=== PATIENT | male | born 1950 | race Caucasian/White ===

== ENCOUNTER 2019-06-05 19:04 | Emergency (ER) | payer MEDICARE ==
--- NOTE | 2019-06-05 19:56 | ER Document Report ---
ED Medical Screen (RME) - General Stated Complaint: LEG PAIN,DIFFICULTY BREATHING Time Seen by Provider: 06/05/19 19:45 Notes: Patient is a 69-year-old male with a history of Parkinson's disease who presents to the emergency department with bilateral lower extremity tremors and shortness of breath. Patient states that he has had his shortness of breath every once in a while, but was worse today and he ended up taking 3 puffs of his albuterol inhaler today. Family is at bedside and states that the patient has had increased confusion. Exam: Clear breath sounds throughout, tremors noted in bilateral lower and right upper extremities. I have greeted and performed a rapid initial assessment of this patient. A comprehensive ED assessment and evaluation of the patient, analysis of test results and completion of medical decision making process will be conducted by an additional ED providers. - Related Data Allergies/Adverse Reactions: No Known Allergies Allergy (Unverified 06/05/19 19:45) Physical Exam - Vital signs Vitals: Temp Pulse Resp BP Pulse Ox 97.7 F 84 18 179/99 H 100 06/05/19 19:22 06/05/19 19:22 06/05/19 19:22 06/05/19 19:22 06/05/19 19:22 Course - Vital Signs Vital signs: Temp Pulse Resp BP Pulse Ox 97.7 F 84 18 179/99 H 100 06/05/19 19:22 06/05/19 19:22 06/05/19 19:22 06/05/19 19:22 06/05/19 19:22
[2019-06-05 20:26] LABS: ABSOLUTE EOSINOPHILS # (AUTO) 0.1 10^3/uL (0.0-0.6); ABSOLUTE LYMPHOCYTES (AUTO) 0.9 10^3/uL (0.5-4.7); ABSOLUTE MONOCYTES (AUTO) 0.7 10^3/uL (0.1-1.4); ABSOLUTE NEUT (AUTO) 4.5 10^3/uL (1.7-8.2); BASOPHILS % (AUTO) 0.4 % (0-2); EOSINOPHILS % (AUTO) 1.3 % (0-6); HEMATOCRIT 45.6 % (37.9-51.0); HEMOGLOBIN 15.4 g/dL (13.5-17.0); LYMPHOCYTES % (AUTO) 14.1 % (13-45); MEAN CORPUSCULAR HEMOGLOBIN 30.2 pg (27.0-33.4); MEAN CORPUSCULAR HGB CONC 33.8 g/dL (32.0-36.0); MEAN CORPUSCULAR VOLUME 90 fl (80-97); MONOCYTES % (AUTO) 10.7 % (3-13); PLATELET COUNT 163 10^3/uL (150-450); RED CELL DISTRIBUTION WIDTH 13.5 % (11.5-14.0); SEGMENTED NEUTROPHILS % (AUTO) 73.5 % (42-78); TOTAL CELLS COUNTED % (AUTO) 100 %; WHITE BLOOD COUNT 6.2 10^3/uL (4.0-10.5)
[2019-06-05 20:50] LABS: ALBUMIN 3.8 g/dL (3.5-5.0); ALKALINE PHOSPHATASE 90 U/L (38-126); ANION GAP 6 (5-19); ASPARTATE AMINO TRANSFERASE 22 U/L (17-59); BILIRUBIN,TOTAL 0.6 mg/dL (0.2-1.3); BLOOD UREA NITROGEN 19 mg/dL (7-20); CALCIUM 9.4 mg/dL (8.4-10.2); CARBON DIOXIDE 27 mmol/L (22-30); CHLORIDE 105 mmol/L (98-107); CREATINE KINASE 103 U/L (55-170); GLUCOSE 91 mg/dL (75-110); POTASSIUM 3.7 mmol/L (3.6-5.0); TOTAL PROTEIN 6.4 g/dL (6.3-8.2)
--- NOTE | 2019-06-05 21:15 | RADIOLOGY REPORT (SQ) ---
XR CHEST 1 VIEW EXAM DATE: 06/05/2019 7:53 PM TESTING CONSULTANT HISTORY: Shortness of breath. COMPARISON: None. FINDINGS: The cardiac silhouette is within normal limits. There is no pulmonary vascular congestion. No focal consolidation is identified. No pleural effusions or pneumothorax. IMPRESSION: No evidence of acute cardiopulmonary disease.
--- NOTE | 2019-06-05 21:16 | RADIOLOGY REPORT (SQ) ---
CT HEAD WITHOUT IV CONTRAST EXAM DATE: 06/05/2019 7:54 PM PRINCIPAL ANDROID DEVELOPER HISTORY: Tremors; confusion. COMPARISON: None. TECHNIQUE: CT scan of the brain without IV contrast. This exam was performed according to our departmental dose-optimization program, which includes automated exposure control, adjustment of the mA and/or kV according to patient size and/or use of iterative reconstruction technique. FINDINGS: The ventricles, cisterns, and sulci are age-appropriate. No evidence of acute infarction, intracranial hemorrhage, extra-axial fluid collection, or midline shift. No air-fluid levels are seen in the paranasal sinuses to suggest acute sinusitis. No depressed skull fracture. IMPRESSION: No acute intracranial findings.
--- NOTE | 2019-06-05 22:00 | EKG REPORT ---
SEVERITY:- ABNORMAL ECG - SINUS RHYTHM BORDERLINE LEFT AXIS DEVIATION NONSPECIFIC T ABNORMALITIES, INFERIOR LEADS : Confirmed by: Lay Adams MD 05-Jun-2019 22:00:03
--- NOTE | 2019-06-06 00:03 | ER Document Report ---
Entered by BETHANY ROWLAND SCRIBE 06/05/19 3621 Acting as scribe for:KARINA HENDRICKS MD ED General - General Chief Complaint: Tremor Stated Complaint: LEG PAIN,DIFFICULTY BREATHING Time Seen by Provider: 06/05/19 19:45 Primary Care Provider: KODY HERNANDEZ PA-C [Primary Care Provider] - Follow up as needed Information source: Patient, Relative Notes: 69-year-old male presents to the emergency department with a chief complaint of tremors that began about 4 years back and has worsened the past 3 weeks. Patient complains of being dizzy, "can't keep my hands still", "memory is getting bad", diaphoresis and diarrhea. Patient denies chest pain and headache. Patient states that reason he came in today was because he was "also having trouble breathing". Patient stated that they are receiving care from PCP for chronic issues and are waiting for results from scans that were done last week. TRAVEL OUTSIDE OF THE [place] IN LAST 30 DAYS: No - Related Data Allergies/Adverse Reactions: No Known Allergies Allergy (Unverified 06/05/19 19:45) Past Medical History - General Information source: Patient, Relative - Social History Smoking Status: Former Smoker Cigarette use (# per day): No Chew tobacco use (# tins/day): No Lives with: Spouse/Significant other Family History: Reviewed & Not Pertinent Patient has suicidal ideation: No Patient has homicidal ideation: No Pulmonary Medical History: Reports: Hx Asthma, Other - Emphysema Renal/ Medical History: Reports: Other - CDK Musculoskeletal Medical History: Reports Hx Arthritis Psychiatric Medical History: Reports: Hx Anxiety, Hx Depression Review of Systems - Review of Systems Constitutional: See HPI, Diaphoresis Cardiovascular: See HPI. denies: Chest pain Gastrointestinal: See HPI, Diarrhea Neurological/Psychological: See HPI. denies: Headaches Physical Exam - Vital signs Vitals: Temp Pulse Resp BP Pulse Ox 97.7 F 84 18 179/99 H 100 06/05/19 19:22 06/05/19 19:22 06/05/19 19:22 06/05/19 19:22 06/05/19 19:22 - Notes Notes: Physical Exam: General: Alert, appears anxious. HEENT: Normocephalic. Atraumatic. PERRL. Extraocular movements intact. Oropharynx clear. Neck: Supple. Non-tender. Respiratory: No respiratory distress. Clear and equal breath sounds bilaterally. Cardiovascular: Regular rate and rhythm. Abdominal: Normal Inspection. Non-tender. No distension. Normal Bowel Sounds. Back: No gross abnormalities. Extremities: Moves all four extremities. Upper extremities: Normal ROM. Moderate tremors; right greater than left. Lower extremities: No edema. Normal ROM. Mild tremors bilaterally. Neurological: Normal cognition. AAOx4. Normal speech. Psychological: Normal affect. Normal Mood. Skin: Warm. Dry. Normal color. Course - Re-evaluation Re-evalutation: 06/05/19 23:57 Patient states he is ready to go home at this time. Patient seems to have voluntary control of his tremors when he is concentrating otherwise his tremors are in all upper and lower extremities greatest in the right. - Vital Signs Vital signs: Temp Pulse Resp BP Pulse Ox 98.2 F 89 14 167/98 H 96 06/05/19 21:38 06/05/19 21:38 06/05/19 23:32 06/05/19 23:32 06/05/19 23:32 - Laboratory Result Diagrams: 06/05/19 20:10 06/05/19 20:10 Laboratory results interpreted by me: 06/05/19 20:10 Creatinine 1.48 H Est GFR ( Amer) 57 L Est GFR (MDRD) Non-Af 47 L 06/05/19 23:57 Patient's laboratories are within normal limits except he has a creatinine of 1.5 patient has known chronic kidney disease. - Diagnostic Test Radiology reviewed: Image reviewed, Reports reviewed Radiology results interpreted by me: 06/05/19 23:58 17-year-old chest x-ray read by radiologist shows no acute process.. CT scan of the head brain does not show any acute infarct no acute disease noted. - EKG Interpretation by Me Additional EKG results interpreted by me: 06/05/19 23:59 Twelve-lead EKG done 06/04/2019 at 2002 normal sinus rhythm rate of 84 left axis deviation and nonspecific ST-T wave changes in the inferior leads no acute ST elevation. Discharge - Discharge Clinical Impression: Tremor of both hands, Emphysema lung Condition: Stable Disposition: HOME, SELF-CARE Additional Instructions: You have you have a tremor in your extremities greatest in the right upper extremity. You currently are on medications to treat Parkinson-like illness. I recommend that you follow-up with a neurologist sooner than your appointment in November 2019. Highly recommend you get with your primary care physician to try to get an earlier appointment for your tremor neurological disease that you have. Referrals: KODY HERNANDEZ PA-C [Primary Care Provider] - Follow up as needed I personally performed the services described in the documentation, reviewed and edited the documentation which was dictated to the scribe in my presence, and it accurately records my words and actions.
[2019-06-06 00:04] VITALS: BP 169/89
== END 2019-06-06 00:06 | disposition home or self-care (01) ==
LOC: ER 19:04
DX: R25.1 Tremor, unspecified (principal); J43.9 Emphysema, unspecified; R42 Dizziness and giddiness; R61 Generalized hyperhidrosis; R19.7 Diarrhea, unspecified; Z87.891 Personal history of nicotine dependence; J45.909 Unspecified asthma, uncomplicated
CPT/HCPCS: 36415; 70450; 71045; 80053; 82550; 83735; 85025; 93005; 93010; 99285

== ENCOUNTER → 2019-06-06 | Outpatient (CLI) | payer MEDICARE ==
[2019-06-06 13:20] LABS: ALBUMIN 3.8 g/dL (3.5-5.0); ALKALINE PHOSPHATASE 65 U/L (38-126); ANION GAP 7 (5-19); ASPARTATE AMINO TRANSFERASE 22 U/L (17-59); BILIRUBIN,TOTAL 0.8 mg/dL (0.2-1.3); BLOOD UREA NITROGEN 16 mg/dL (7-20); CALCIUM 9.2 mg/dL (8.4-10.2); CARBON DIOXIDE 28 mmol/L (22-30); CHLORIDE 105 mmol/L (98-107); CHOLESTEROL 183.22 mg/dL (0-200); GLUCOSE 84 mg/dL (75-110); TOTAL PROTEIN 6.4 g/dL (6.3-8.2); TRIGLYCERIDES 80 mg/dL (<150)
[2019-06-06 13:32] LABS: DIRECT LDL 133 mg/dL (<100)
[2019-06-06 13:44] LABS: POTASSIUM 4.7 mmol/L (3.6-5.0)
== END ==
LOC: OD 11:34
PROVIDERS: ATTEND Physician Assistant
DX: R06.00 Dyspnea, unspecified (principal); R07.9 Chest pain, unspecified; I12.9 Hypertensive chronic kidney disease with stage 1 through stage 4 chronic kidney disease, or unspecified chronic kidney disease; N18.2 Chronic kidney disease, stage 2 (mild)
CPT/HCPCS: 36415; 80048; 80061; 80076; 83735; 83880; 84443

== ENCOUNTER → 2019-08-09 | Outpatient (CLI) | payer MEDICARE ==
[2019-08-09 09:56] LABS: ALBUMIN 4.3 g/dL (3.5-5.0); ALKALINE PHOSPHATASE 88 U/L (38-126); ASPARTATE AMINO TRANSFERASE 34 U/L (17-59); BILIRUBIN,DIRECT 0.1 mg/dL (0.0-0.4); BILIRUBIN,TOTAL 0.9 mg/dL (0.2-1.3); CHOLESTEROL 127.21 mg/dL (0-200); TOTAL PROTEIN 6.9 g/dL (6.3-8.2); TRIGLYCERIDES 71 mg/dL (<150)
[2019-08-09 10:15] LABS: DIRECT LDL 71 mg/dL (<100)
== END ==
LOC: OD 08:51
PROVIDERS: ATTEND Physician Assistant
DX: E78.5 Hyperlipidemia, unspecified (principal); Z79.899 Other long term (current) drug therapy
CPT/HCPCS: 36415; 80061; 80076

== ENCOUNTER 2019-09-24 17:20 | Emergency (ER) | payer MEDICARE ==
--- NOTE | 2019-09-24 17:41 | ER Document Report ---
ED Medical Screen (RME) - General Chief Complaint: Chest Pain Stated Complaint: CHEST PAIN Time Seen by Provider: 09/24/19 17:36 Primary Care Provider: ANTHONY FORREST PA-C [Primary Care Provider] - Follow up as needed Mode of Arrival: Wheelchair Information source: Patient Notes: 69-year-old male presents to ED for feeling shocklike sensation to his chest multiple times since 330. Girlfriend states she is given him 2 nitros since 330. He states he had had a shocking feeling for a while but while we were talking to him he states he felt a going to his chest again. Patient significant other states that patient has a history of cardiac disease lung disease and Parkinson's and has been becoming more more confused for the last several weeks to month. She is she states the last couple weeks is even been more so than normal. She states he is seeing things that are not there and is saying things that make no sense. She states at times he mumbles. She states this has gotten worse over the last week even that was before. I have greeted and performed a rapid initial assessment of this patient. A comprehensive ED assessment and evaluation of the patient, analysis of test results and completion of medical decision making process will be conducted by an additional ED providers. TRAVEL OUTSIDE OF THE [place] IN LAST 30 DAYS: No - Related Data Allergies/Adverse Reactions: No Known Allergies Allergy (Unverified 06/05/19 19:45) Past Medical History Pulmonary Medical History: Reports: Hx Asthma Musculoskeltal Medical History: Reports Hx Arthritis Psychiatric Medical History: Reports: Hx Anxiety, Hx Depression Physical Exam - Vital signs Vitals: Temp Pulse Resp BP Pulse Ox 98.8 F 82 16 128/73 H 96 09/24/19 17:34 09/24/19 17:34 09/24/19 17:34 09/24/19 17:34 09/24/19 17:34 Course - Vital Signs Vital signs: Temp Pulse Resp BP Pulse Ox 98.8 F 82 16 128/73 H 96 09/24/19 17:34 09/24/19 17:34 09/24/19 17:34 09/24/19 17:34 09/24/19 17:34 Doctor's Discharge - Discharge Referrals: ANTHONY FORREST PA-C [Primary Care Provider] - Follow up as needed
[2019-09-24 18:54] LABS: ABSOLUTE EOSINOPHILS # (AUTO) 0.3 10^3/uL (0.0-0.6); ABSOLUTE LYMPHOCYTES (AUTO) 1.1 10^3/uL (0.5-4.7); ABSOLUTE MONOCYTES (AUTO) 0.9 10^3/uL (0.1-1.4); ABSOLUTE NEUT (AUTO) 4.8 10^3/uL (1.7-8.2); BASOPHILS % (AUTO) 0.5 % (0-2); EOSINOPHILS % (AUTO) 3.6 % (0-6); HEMOGLOBIN 14.7 g/dL (13.5-17.0); LYMPHOCYTES % (AUTO) 15.3 % (13-45); MEAN CORPUSCULAR HEMOGLOBIN 30.4 pg (27.0-33.4); MEAN CORPUSCULAR HGB CONC 33.5 g/dL (32.0-36.0); MEAN CORPUSCULAR VOLUME 91 fl (80-97); MONOCYTES % (AUTO) 12.3 % (3-13); PLATELET COUNT 167 10^3/uL (150-450); RED BLOOD COUNT 4.84 10^6/uL (4.35-5.55); RED CELL DISTRIBUTION WIDTH 13.8 % (11.5-14.0); SEGMENTED NEUTROPHILS % (AUTO) 68.3 % (42-78); TOTAL CELLS COUNTED % (AUTO) 100 %
--- NOTE | 2019-09-24 19:00 | RADIOLOGY REPORT (SQ) ---
EXAM DESCRIPTION: CHEST 2 VIEWS IMAGES COMPLETED DATE/TIME: 09/24/2019 5:39 pm REASON FOR STUDY: Altered mental status COMPARISON: 06/05/2019 EXAM PARAMETERS: NUMBER OF VIEWS: two views TECHNIQUE: Digital Frontal and Lateral radiographic views of the chest acquired. RADIATION DOSE: NA LIMITATIONS: none FINDINGS: LUNGS AND PLEURA: No opacities, masses or pneumothorax. No pleural effusion. MEDIASTINUM AND HILAR STRUCTURES: No masses or contour abnormalities. HEART AND VASCULAR STRUCTURES: Heart normal size. No evidence for failure. BONES: No acute findings. HARDWARE: None in the chest. OTHER: No other significant finding. IMPRESSION: NO ACUTE RADIOGRAPHIC FINDING IN THE CHEST. TECHNICAL DOCUMENTATION: JOB ID: [id number] 2010 [employer]- All Rights Reserved Reading location - IP/workstation name: [email or web address]
[2019-09-24 19:03] LABS: INTERNATIONAL RATION (INR) 0.94; PROTHROMBIN TIME 12.6 SEC (11.4-15.4)
[2019-09-24 19:04] LABS: PARTIAL THROMBOPLASTIN TIME 24.6 SEC (23.5-35.8)
[2019-09-24 19:15] LABS: ALKALINE PHOSPHATASE 97 U/L (38-126); ANION GAP 6 (5-19); ASPARTATE AMINO TRANSFERASE 28 U/L (17-59); BILIRUBIN,TOTAL 0.4 mg/dL (0.2-1.3); BLOOD UREA NITROGEN 19 mg/dL (7-20); CALCIUM 9.4 mg/dL (8.4-10.2); CARBON DIOXIDE 27 mmol/L (22-30); CHLORIDE 105 mmol/L (98-107); GLUCOSE 101 mg/dL (75-110); POTASSIUM 4.1 mmol/L (3.6-5.0); TOTAL PROTEIN 6.4 g/dL (6.3-8.2)
--- NOTE | 2019-09-24 19:17 | RADIOLOGY REPORT (SQ) ---
EXAM DESCRIPTION: CT HEAD WITHOUT IMAGES COMPLETED DATE/TIME: 09/24/2019 5:57 pm REASON FOR STUDY: Altered mental status COMPARISON: CT head 06/05/2019 TECHNIQUE: Axial images acquired through the brain without intravenous contrast. Images reviewed wi th bone, brain and subdural windows. Additional sagittal and coronal reconstructions were generated. Images stored on PACS. All CT scanners at this facility use dose modulation, iterative reconstruction, and/or weight based d osing when appropriate to reduce radiation dose to as low as reasonably achievable (ALARA). [facility]: Dose Right [facility]: CareDose [facility]: Dose Right [facility]: Teradose 4D [facility]: FFFavs RADIATION DOSE: CT Rad equipment meets quality standard of care and radiation dose reduction techniq ues were employed. CTDIvol: 53.2 mGy. DLP: 1017 mGy-cm. mGy. LIMITATIONS: None. FINDINGS: VENTRICLES: Normal size and contour. CEREBRUM: No masses. No hemorrhage. No midline shift. No evidence for acute infarction. Normal gra y/white matter differentiation. No areas of low density in the white matter. CEREBELLUM: No masses. No hemorrhage. No alteration of density. No evidence for acute infarction. EXTRAAXIAL SPACES: No fluid collections. No masses. ORBITS AND GLOBE: No intra- or extraconal masses. Normal contour of globe without masses. CALVARIUM: No fracture. PARANASAL SINUSES: No fluid or mucosal thickening. SOFT TISSUES: No mass or hematoma. OTHER: No other significant finding. IMPRESSION: NO ACUTE INTRACRANIAL IMAGING FINDINGS. EVIDENCE OF ACUTE STROKE: NO. COMMENT: Quality ID # 436: Final reports with documentation of one or more dose reduction techniques (e.g., Automated exposure control, adjustment of the mA and/or kV according to patient size, use of iterative reconstruction technique) TECHNICAL DOCUMENTATION: JOB ID: [id number] 2010 [employer]- All Rights Reserved Reading location - IP/workstation name: [email or web address]
[2019-09-24 19:19] LABS: ALCOHOL < 10 mg/dL (NONE DETECTED)
--- NOTE | 2019-09-24 21:00 | ER Document Report ---
ED General - General Chief Complaint: Chest Pain Stated Complaint: CHEST PAIN Time Seen by Provider: 09/24/19 17:36 Primary Care Provider: ANTHONY FORREST PA-C [Primary Care Provider] - Follow up as needed Mode of Arrival: Wheelchair Notes: Patient is a 69-year-old white male with a history of Parkinson's, hypertension, COPD and reports that he seen the "heart surgeon" in the past but required no surgery and was prescribed nitroglycerin pills who presents to the emergency department the chief complaint of electrical shock sensation in the chest. Patient does not have a implanted cardio defibrillator pacemaker. He denies ever having an [place]. He states he was at home in the heat today moving some small logs and felt electrical shocks in the right upper abdomen area. States these were fleeting and transient. He reports that have not returned but he thought he would come in and have them evaluated out of concern. He denies any associated symptoms. Denies any shortness of breath, lower extremity pain or swelling, history of DVT or PE, recent surgery, recent travel, recent mobilization, history of cancer. According to triage note the patient's ex- girlfriend reports that these seem to have some worsening of his Parkinson's over the past month or so. TRAVEL OUTSIDE OF THE [place] IN LAST 30 DAYS: No - Related Data Allergies/Adverse Reactions: No Known Allergies Allergy (Verified 09/24/19 17:37) Past Medical History - General Information source: Patient - Social History Smoking Status: Never Smoker Chew tobacco use (# tins/day): No Frequency of alcohol use: None Drug Abuse: None Family History: Reviewed & Not Pertinent Patient has homicidal ideation: No - Past Medical History Cardiac Medical History: Reports: Hx Hypertension Pulmonary Medical History: Reports: Hx Asthma Musculoskeletal Medical History: Reports Hx Arthritis Psychiatric Medical History: Reports: Hx Anxiety, Hx Depression Review of Systems - Review of Systems Cardiovascular: Chest pain -: Yes All other systems reviewed and negative Physical Exam - Vital signs Vitals: Temp Pulse Resp BP Pulse Ox 98.8 F 82 16 128/73 H 96 09/24/19 17:34 09/24/19 17:34 09/24/19 17:34 09/24/19 17:34 09/24/19 17:34 - General General appearance: Appears well, Alert In distress: None - HEENT Head: Normocephalic, Atraumatic Eyes: Normal Conjunctiva: Normal Pupils: PERRL Neck: Supple - Respiratory Respiratory status: No respiratory distress Chest status: Nontender Breath sounds: Normal Chest palpation: Normal - Cardiovascular Rhythm: Regular Heart sounds: Normal auscultation Murmur: No Pulses: Normal: Radial, Posterior tibial, Dorsalis pedis Notes: Slight tenderness palpation right anterior chest wall - Abdominal Inspection: Normal Distension: No distension Bowel sounds: Normal Tenderness: Nontender Organomegaly: No organomegaly - Neurological Neuro grossly intact: Yes Cognition: Normal Orientation: AAOx4 - Psychological Associated symptoms: Normal affect, Normal mood - Skin Skin Temperature: Warm Skin Moisture: Dry Skin Color: Normal Course - Re-evaluation Re-evalutation: 09/24/19 23:20 Reevaluation patient at this time, he is resting comfortably in the room in no acute distress. His blood pressures have been somewhat elevated but relatively stable. He said no episodes of the electrical shock or pains here. He has had 2- troponins. His first EKG at 1740 showed sinus rhythm at 74 prior bpm with a left axis deviation, normal intervals with some T wave inversions in 3 and V1. This was's similar to the prior EKG from 06/05/2019. A secondary EKG was obtained at 2311 which again showed a sinus rhythm at 77 bpm with another left axis deviation with normal intervals otherwise. No STEMI. Similar to prior EKGs. Couple of this and 2- troponins. Patient states the nitro that he is never taken up or had no bearing on his discomfort. He denies any diaphoresis or shortness of breath. No other pain or complaints. Has been asymptomatic during his stay here in the emergency department. His work-up is largely unremarkable. It is felt that he is safe to be discharged home for outpatient care management. Advised to call his primary doctor in the morning for continued care management. Advised to return here any ER immediately with any new, persistent or worsening symptoms. He verbalized understood and agreed. - Vital Signs Vital signs: Temp Pulse Resp BP Pulse Ox 98.8 F 82 12 161/104 H 97 09/24/19 17:37 09/24/19 17:34 09/24/19 19:38 09/24/19 19:38 09/24/19 19:45 - Laboratory Result Diagrams: 09/24/19 18:20 09/24/19 18:20 Laboratory results interpreted by me: 09/24/19 09/24/19 09/24/19 18:20 21:30 22:20 Creatinine 1.34 H Est GFR (MDRD) Non-Af 53 L Ammonia < 8.7 L Urine Blood SMALL H Discharge - Discharge Clinical Impression: Chest pain Qualifiers: Chest pain type: unspecified Qualified Code(s): R07.9 - Chest pain, unspecified Condition: Stable Disposition: HOME, SELF-CARE Instructions: Chest Wall Pain ([facility]), Chest Pain of Unclear Cause ([facility]) Additional Instructions: Please call your regular doctor first thing in the morning for continued outpatient care and management. Please return here or any ER immediately with any new, persistent or worsening symptoms. Referrals: ANTHONY FORREST PA-C [Primary Care Provider] - Follow up as needed
--- NOTE | 2019-09-24 22:39 | EKG REPORT ---
SEVERITY:- OTHERWISE NORMAL ECG - SINUS RHYTHM BORDERLINE LEFT AXIS DEVIATION : Confirmed by: Lay Adams MD 24-Sep-2019 22:38:54
[2019-09-24 22:51] LABS: APPEARANCE,URINE CLEAR; BILIRUBIN,URINE NEGATIVE (NEGATIVE); COLOR,URINE YELLOW; GLUCOSE, URINE NEGATIVE (NEGATIVE); KETONES,URINE NEGATIVE (NEGATIVE); LEUKOCYTE ESTERASE,URINE NEGATIVE (NEGATIVE); NITRITE,URINE NEGATIVE (NEGATIVE); PROTEIN,URINE NEGATIVE (NEGATIVE); URINE SPECIFIC GRAVITY 1.023; UROBILINOGEN,URINE NEGATIVE mg/dL (<2.0)
[2019-09-24 23:05] LABS: URINE AMPHETAMINES SCREEN NEGATIVE; URINE BARBITURATES SCREEN NEGATIVE; URINE BENZODIAZEPINES SCREEN NEGATIVE; URINE COCAINE SCREEN NEGATIVE; URINE MARIJUANA (THC) SCREEN NEGATIVE; URINE METHADONE SCREEN NEGATIVE; URINE PHENCYCLIDINE SCREEN NEGATIVE
[2019-09-24 23:27] VITALS: BP 172/95
--- NOTE | 2019-09-25 07:23 | EKG REPORT ---
SEVERITY:- ABNORMAL ECG - SINUS RHYTHM LEFT AXIS DEVIATION NONSPECIFIC ST-T CHANGES- INFERIOR LEADS : Confirmed by: Santiago Holliday MD 25-Sep-2019 07:22:47
== END 2019-09-24 23:20 | disposition home or self-care (01) ==
LOC: ER 17:20
DX: R07.9 Chest pain, unspecified (principal); R19.8 Other specified symptoms and signs involving the digestive system and abdomen; X50.0XXA Overexertion from strenuous movement or load, initial encounter; Y93.89 Activity, other specified; Y92.009 Unspecified place in unspecified non-institutional (private) residence as the place of occurrence of the external cause; G20 Parkinson's disease; I10 Essential (primary) hypertension; J44.9 Chronic obstructive pulmonary disease, unspecified; J45.909 Unspecified asthma, uncomplicated
CPT/HCPCS: 36415; 70450; 71046; 80053; 80307; 81001; 82140; 83735; 84484; 85025; 85610; 85730; 93005; 93010; 99285

== ENCOUNTER 2019-10-11 14:26 | Emergency (ER) | payer MEDICARE ==
--- NOTE | 2019-10-11 16:31 | ER Document Report ---
ED Medical Screen (RME) - General Chief Complaint: Leg Pain Stated Complaint: LEG PAIN,CONFUSION Time Seen by Provider: 10/11/19 16:25 Primary Care Provider: ANTHONY FORREST PA-C [Primary Care Provider] - Follow up as needed Mode of Arrival: Ambulatory Information source: Patient, Relative Notes: HPI; 69-year-old male past medical history significant for Parkinson's presents emergency room with worsening confusion for the past 2 weeks. Per it has been ongoing for several months. Saw her PCP today. Was referred to the emergency room for further evaluation and treatment. Patient also complains of chronic right leg pain that is relieved with aspirin, Tylenol, and Advil. Recent travel. No COVID-19 exposure. 3 previous CVAs or strokes. PE: Alert oriented to name only. Does not know date of , does not know age. Able to confirm year or presence of location.. Does recognize . Lungs: Clear to auscultation without rales, rhonchi, wheezes. Heart: Regular rate rhythm without murmurs, rubs, gallops. I have greeted and performed a rapid initial assessment of this patient. A comprehensive ED assessment and evaluation of the patient, analysis of test results and completion of the medical decision making process will be conducted by additional ED providers. I have specifically instructed the patient or family members with the patient to immediately return to any nursing staff should anything change in the patient's condition or with their chief complaint. TRAVEL OUTSIDE OF THE [place] IN LAST 30 DAYS: No - Related Data Allergies/Adverse Reactions: No Known Allergies Allergy (Verified 09/24/19 17:37) Past Medical History - Past Medical History Cardiac Medical History: Reports: Hx Hypertension Pulmonary Medical History: Reports: Hx Asthma Musculoskeltal Medical History: Reports Hx Arthritis Psychiatric Medical History: Reports: Hx Anxiety, Hx Depression Physical Exam - Vital signs Vitals: Temp Pulse Resp BP Pulse Ox 98.7 F 70 16 119/77 97 10/11/19 15:24 10/11/19 15:24 10/11/19 15:24 10/11/19 15:24 10/11/19 15:24 Course - Vital Signs Vital signs: Temp Pulse Resp BP Pulse Ox 98.7 F 70 16 119/77 97 10/11/19 15:24 10/11/19 15:24 10/11/19 15:24 10/11/19 15:24 10/11/19 15:24 Doctor's Discharge - Discharge Referrals: ANTHONY FORREST, PAHangC [Primary Care Provider] - Follow up as needed
--- NOTE | 2019-10-11 16:44 | RADIOLOGY REPORT (SQ) ---
EXAM DESCRIPTION: CHEST SINGLE VIEW IMAGES COMPLETED DATE/TIME: 10/11/2019 4:34 pm REASON FOR STUDY: altered mental status COMPARISON: 09/24/2019 EXAM PARAMETERS: NUMBER OF VIEWS: One view. TECHNIQUE: Single frontal radiographic view of the chest acquired. RADIATION DOSE: NA LIMITATIONS: None. FINDINGS: LUNGS AND PLEURA: No opacities, masses or pneumothorax. No pleural effusion. MEDIASTINUM AND HILAR STRUCTURES: No masses. Contour normal. HEART AND VASCULAR STRUCTURES: Heart normal in size. Normal vasculature. BONES: No acute findings. HARDWARE: None in the chest. OTHER: No other significant finding. IMPRESSION: NO ACUTE RADIOGRAPHIC FINDING IN THE CHEST. TECHNICAL DOCUMENTATION: JOB ID: [id number] 2010 [employer]- All Rights Reserved Reading location - IP/workstation name: [email or web address]
--- NOTE | 2019-10-11 16:52 | RADIOLOGY REPORT (SQ) ---
EXAM DESCRIPTION: CT HEAD WITHOUT IMAGES COMPLETED DATE/TIME: 10/11/2019 4:41 pm REASON FOR STUDY: altered mental status COMPARISON: CT brain 06/05/2019, 09/24/2019 TECHNIQUE: Axial images acquired through the brain without intravenous contrast. Images reviewed wi th bone, brain and subdural windows. Additional sagittal and coronal reconstructions were generated. Images stored on PACS. All CT scanners at this facility use dose modulation, iterative reconstruction, and/or weight based d osing when appropriate to reduce radiation dose to as low as reasonably achievable (ALARA). [facility]: Dose Right [facility]: CareDose [facility]: Dose Right [facility]: Teradose 4D [facility]: Smart [employer] RADIATION DOSE: CT Rad equipment meets quality standard of care and radiation dose reduction techniq ues were employed. CTDIvol: 53.2 mGy. DLP: 991 mGy-cm. mGy. LIMITATIONS: None. FINDINGS: VENTRICLES: Normal size and contour. CEREBRUM: No masses. No hemorrhage. No midline shift. No evidence for acute infarction. Normal gra y/white matter differentiation. No areas of low density in the white matter. CEREBELLUM: No masses. No hemorrhage. No alteration of density. No evidence for acute infarction. EXTRAAXIAL SPACES: No fluid collections. No masses. ORBITS AND GLOBE: No intra- or extraconal masses. Normal contour of globe without masses. CALVARIUM: No fracture. PARANASAL SINUSES: No fluid or mucosal thickening. SOFT TISSUES: No mass or hematoma. OTHER: No other significant finding. IMPRESSION: NORMAL BRAIN CT WITHOUT CONTRAST. EVIDENCE OF ACUTE STROKE: NO. COMMENT: Quality ID # [id number]: Final reports with documentation of one or more dose reduction techniques (e.g., Automated exposure control, adjustment of the mA and/or kV according to patient size, use of iterative reconstruction technique) TECHNICAL DOCUMENTATION: JOB ID: [id number] 2010 [employer]- All Rights Reserved Reading location - IP/workstation name: [email or web address]
[2019-10-11 17:02] LABS: ABSOLUTE EOSINOPHILS # (AUTO) 0.1 10^3/uL (0.0-0.6); ABSOLUTE LYMPHOCYTES (AUTO) 0.9 10^3/uL (0.5-4.7); ABSOLUTE MONOCYTES (AUTO) 0.6 10^3/uL (0.1-1.4); TOTAL CELLS COUNTED % (AUTO) 100 %
[2019-10-11 17:06] LABS: INTERNATIONAL RATION (INR) 0.91; PROTHROMBIN TIME 12.2 SEC (11.4-15.4)
[2019-10-11 17:07] LABS: PARTIAL THROMBOPLASTIN TIME 28.4 SEC (23.5-35.8)
[2019-10-11 17:12] LABS: ABSOLUTE NEUT (AUTO) 5.3 10^3/uL (1.7-8.2); BASOPHILS % (AUTO) 0.3 % (0-2); HEMATOCRIT 44.9 % (37.9-51.0); LYMPHOCYTES % (AUTO) 13.2 % (13-45); MEAN CORPUSCULAR HEMOGLOBIN 30.1 pg (27.0-33.4); MEAN CORPUSCULAR HGB CONC 33.3 g/dL (32.0-36.0); MEAN CORPUSCULAR VOLUME 90 fl (80-97); MONOCYTES % (AUTO) 8.6 % (3-13); PLATELET COUNT 187 10^3/uL (150-450); RED BLOOD COUNT 4.97 10^6/uL (4.35-5.55); RED CELL DISTRIBUTION WIDTH 13.6 % (11.5-14.0); SEGMENTED NEUTROPHILS % (AUTO) 75.9 % (42-78)
[2019-10-11 17:16] LABS: ALKALINE PHOSPHATASE 76 U/L (38-126); ASPARTATE AMINO TRANSFERASE 31 U/L (17-59); BILIRUBIN,TOTAL 0.5 mg/dL (0.2-1.3); BLOOD UREA NITROGEN 19 mg/dL (7-20); CALCIUM 9.3 mg/dL (8.4-10.2); CARBON DIOXIDE 31 mmol/L (22-30); CHLORIDE 104 mmol/L (98-107); CREATINE KINASE 98 U/L (55-170); GLUCOSE 108 mg/dL (75-110); POTASSIUM 4.9 mmol/L (3.6-5.0); TOTAL PROTEIN 6.5 g/dL (6.3-8.2)
[2019-10-11 17:27] LABS: ANION GAP 4 (5-19)
[2019-10-11 17:29] LABS: CREATINE KINASE MB 2.11 ng/mL (<4.55)
[2019-10-11 17:32] LABS: TROPONIN I < 0.012 ng/mL
--- NOTE | 2019-10-11 21:17 | ER Document Report ---
ED General - General Chief Complaint: Altered Mental Status Stated Complaint: LEG PAIN,CONFUSION Time Seen by Provider: 10/11/19 16:25 Primary Care Provider: ANTHONY FORREST PA-C [PHYSICIAN ACTION FINISHER] - Follow up as needed Mode of Arrival: Ambulatory TRAVEL OUTSIDE OF THE [place] IN LAST 30 DAYS: No - HPI Notes: This is a 69-year-old male with a history of Parkinson's disease who presents to the emergency department for evaluation. is a primary historian. The patient has been having increased hallucinations. He has been having memory issues and hallucinations over the last 6 months, but has been worse over the last 3 to 4 weeks. He is on a new medication to "help with the carbidopa levodopa work" but they are unsure as to what it is. It was started by neurology. He has been having primarily visual hallucinations, including a small bat in the light fixture, and [employer] in the home. states he did have some hallucinations before, but they have gotten much worse. The patient does not remember them specifically usually. He does remember seeing what he believed to be a bat in a light fixture. Otherwise the patient has some chronic right leg pain is been going on for at least 6 to 7 months, but denies any other acute issues or concerns. He does have urinary frequency at night, actually did have one episode of incontinence last week. - Related Data Allergies/Adverse Reactions: No Known Allergies Allergy (Verified 09/24/19 17:37) Home Medications: proair, aspirin, atorvastatin, carbidopa-levodopa, flexeril, gabapentin, lisinopril, nitro, tamsulosin, trazodone Past Medical History - General Information source: Patient, Relative - Social History Smoking Status: Former Smoker Chew tobacco use (# tins/day): No Frequency of alcohol use: None Drug Abuse: None Family History: Reviewed & Not Pertinent - Past Medical History Cardiac Medical History: Reports: Hx Hypercholesterolemia, Hx Hypertension Pulmonary Medical History: Reports: Hx Asthma Neurological Medical History: Reports: Hx Parkinson's Disease Musculoskeletal Medical History: Reports Hx Arthritis Psychiatric Medical History: Reports: Hx Anxiety, Hx Depression Review of Systems - Review of Systems Genitourinary: See HPI Musculoskeletal: See HPI Neurological/Psychological: See HPI -: Yes All other systems reviewed and negative Physical Exam - Vital signs Vitals: Temp Pulse Resp BP Pulse Ox 98.7 F 70 16 119/77 97 10/11/19 15:24 10/11/19 15:24 10/11/19 15:24 10/11/19 15:24 10/11/19 15:24 - Notes Notes: Vital signs reviewed, please refer to chart. Head is normocephalic, atraumatic. Pupils equal round, reactive to light. Neck is supple without meningismus. Heart is regular rate and rhythm. Lungs are clear to auscultation bilaterally. Abdomen is soft, nontender, normoactive bowel sounds throughout. Extremities without cyanosis, clubbing. Posterior calves are nontender. Peripheral pulses are equal. Skin is warm and dry. Patient is awake, alert, neurological exam is nonfocal. Vital signs reviewed, please refer to chart. Head is normocephalic, atraumatic. Pupils equal round, reactive to light. Neck is supple without meningismus. Heart is regular rate and rhythm. Lungs are clear to auscultation bilaterally. Abdomen is soft, nontender, normoactive bowel sounds throughout. Extremities without cyanosis, clubbing. Posterior calves are nontender. Peripheral pulses are equal. Skin is warm and dry. Patient is awake, alert, knows he is in the emergency room, but takes several minutes to remember he is at [facility]. He initially tells me it is May, then remembers this is October 13 weekend. He correctly guesses the year, and tells me the president is "Sundeep Deutsch." Cranial nerves II - XII are grossly intact without focal neurological deficits. Strength is plus 5 out of 5 bilateral upper and lower extremities. Sensation is intact. Reflexes symmetrical. Intact [id number], rapid alternating movements, [id number]. Course - Re-evaluation Re-evalutation: 10/11/19 21:18 Patient is a 69-year-old male who presents to the emergency department for evaluation. He has no acute findings on neurological exam here today. Laboratory investigations are largely unremarkable. Awaiting urinalysis. I explained to the patient and his that visual hallucinations can frequently be a part of Parkinson's, or indicative of another coinciding dementia process. I do not see any focal findings were the of MRI at this time. I am awaiting urinalysis, as the patient did have an episode of incontinence the other day, although this still could be part of the Parkinson's syndrome. I strongly encouraged him to contact neurology tomorrow morning, discuss the new medication, discussed the increasing hallucinations that have happened since the onset of this medication, and discuss whether there were any other options to help decrease its incidence. I also encouraged the patient's to discuss outpatient care and help options, as he seems to be worse at night, she is concerned about him leaving the home while she is asleep. They voiced understanding. At this point awaiting urinalysis, patient is stable. 10/11/19 22:06 Patient's urinalysis fails to reveal any significant signs of infection. He did to start pramipexole, likely the etiology of the worsening hallucinations, although certainly progression of Parkinson's could cause this as well. We talked at length about this. I explained to the patient and his that he should not stop any medications at this time, he should call his neurologist and discuss this further. They were amenable to this plan. They are to return to the ER with worsening or new concerning symptoms of any sort. - Vital Signs Vital signs: Temp Pulse Resp BP Pulse Ox 98.3 F 71 16 151/94 H 100 10/11/19 19:43 10/11/19 19:43 10/11/19 15:24 10/11/19 19:43 10/11/19 19:43 - Laboratory Result Diagrams: 10/11/19 16:44 10/11/19 16:44 Laboratory results interpreted by me: 10/11/19 10/11/19 16:44 21:29 Carbon Dioxide 31 H Anion Gap 4 L Creatinine 1.38 H Est GFR (MDRD) Non-Af 51 L Urine Ketones TRACE H Urine Blood SMALL H - Diagnostic Test Radiology reviewed: Reports reviewed Radiology results interpreted by me: 10/11/19 21:18 Chest X-Ray 10/11/19 16:25 IMPRESSION: NO ACUTE RADIOGRAPHIC FINDING IN THE CHEST. Head CT 10/11/19 16:25 IMPRESSION: NORMAL BRAIN CT WITHOUT CONTRAST. EVIDENCE OF ACUTE STROKE: NO. - EKG Interpretation by Me Additional EKG results interpreted by me: 10/11/19 21:19 Sinus mechanism with rate of 69 bpm. Normal axis and intervals. No acute ST changes concerning for ischemia or infarction. Discharge - Discharge Clinical Impression: Visual hallucinations Condition: Stable Disposition: HOME, SELF-CARE Instructions: Hallucinations ([facility]) Additional Instructions: These hallucinations may be a side effect to the new medication, pramipexole. They also could be secondary to progression of his Parkinson's. Please discuss these with his neurologist, set up an appointment, and discuss next steps. If he develops worsening or new concerning symptoms of any sort, return immediately to the emergency department for evaluation. Referrals: ANTHONY FORREST PA-C [PHYSICIAN ACTION FINISHER] - Follow up as needed
[2019-10-11 21:50] LABS: APPEARANCE,URINE CLEAR; BILIRUBIN,URINE NEGATIVE (NEGATIVE); COLOR,URINE YELLOW; GLUCOSE, URINE NEGATIVE (NEGATIVE); KETONES,URINE TRACE mg/dL (NEGATIVE); LEUKOCYTE ESTERASE,URINE NEGATIVE (NEGATIVE); NITRITE,URINE NEGATIVE (NEGATIVE); PROTEIN,URINE NEGATIVE (NEGATIVE); URINE SPECIFIC GRAVITY 1.025; UROBILINOGEN,URINE NEGATIVE mg/dL (<2.0)
--- NOTE | 2019-10-11 22:00 | EKG REPORT ---
SEVERITY:- BORDERLINE ECG - SINUS RHYTHM CONSIDER RIGHT VENTRICULAR HYPERTROPHY : Confirmed by: Lay Adams MD 11-Oct-2019 22:00:27
[2019-10-11 22:15] VITALS: BP 149/90
== END 2019-10-11 22:15 | disposition home or self-care (01) ==
LOC: ER 14:26
DX: R44.1 Visual hallucinations (principal); G20 Parkinson's disease; R35.0 Frequency of micturition; M79.604 Pain in right leg; G89.29 Other chronic pain; E78.00 Pure hypercholesterolemia, unspecified; I10 Essential (primary) hypertension; J45.909 Unspecified asthma, uncomplicated; F32.9 Major depressive disorder, single episode, unspecified; F41.9 Anxiety disorder, unspecified; Z79.899 Other long term (current) drug therapy; Z79.82 Long term (current) use of aspirin; Z87.891 Personal history of nicotine dependence
CPT/HCPCS: 36415; 70450; 71045; 80053; 81001; 82550; 82553; 84484; 85025; 85610; 85730; 93005; 93010; 99285

== ENCOUNTER → 2019-11-09 | Outpatient (CLI) | payer MEDICARE ==
[2019-11-09 09:17] LABS: ALBUMIN 3.8 g/dL (3.5-5.0); ALKALINE PHOSPHATASE 82 U/L (38-126); ASPARTATE AMINO TRANSFERASE 26 U/L (17-59); BILIRUBIN,TOTAL 0.6 mg/dL (0.2-1.3); BLOOD UREA NITROGEN 19 mg/dL (7-20); CALCIUM 8.9 mg/dL (8.4-10.2); CHOLESTEROL 99.63 mg/dL (0-200); GLUCOSE 125 mg/dL (75-110); POTASSIUM 4.1 mmol/L (3.6-5.0); TOTAL PROTEIN 6.3 g/dL (6.3-8.2); TRIGLYCERIDES 66 mg/dL (<150)
[2019-11-09 09:21] LABS: CARBON DIOXIDE 29 mmol/L (22-30); CHLORIDE 106 mmol/L (98-107)
[2019-11-09 09:28] LABS: DIRECT LDL 52 mg/dL (<100)
[2019-11-09 09:33] LABS: ANION GAP 5 (5-19)
== END ==
LOC: OD 07:55
PROVIDERS: ATTEND Physician Assistant
DX: E78.5 Hyperlipidemia, unspecified (principal); I10 Essential (primary) hypertension; Z79.899 Other long term (current) drug therapy
CPT/HCPCS: 36415; 80048; 80061; 80076

== ENCOUNTER → 2020-05-02 | Outpatient (CLI) | payer MEDICARE ==
--- NOTE | 2020-05-02 13:14 | RADIOLOGY REPORT (SQ) ---
EXAM DESCRIPTION: MRI RT LOWER JOINT WITHOUT IMAGES COMPLETED DATE/TIME: 05/02/2020 12:46 pm REASON FOR STUDY: (M25.561)PAIN IN RIGHT KNEE M25.561 PAIN IN RIGHT KNEE COMPARISON: None. TECHNIQUE: Rightknee images acquired and stored on PACS. Multiplanar images include fat sensitive s equences as T1, water sensitive sequences as FST2 or STIR, cartilage sensitive sequences as FSPD, and gradient echo sequences. LIMITATIONS: None. FINDINGS: JOINT AND BURSAE: No effusion. BONE CORTEX AND MARROW: No alteration of signal to suggest marrow replacement. No worrisome bone lesi ons. No occult fracture. ACL: Chronic high-grade injury with the appearance of few possible intact fibers on coronal imaging. PCL: Intact. MCL: Intact. No periligamentous edema or fluid. LCL: Intact. No periligamentous edema or fluid. MEDIAL MENISCUS: Atypically surfacing longitudinal tear of the body with free edge fraying. LATERAL MENISCUS: No tears. No abnormal signal. MEDIAL COMPARTMENT: Mild partial-thickness cartilaginous thinning of the medial aspect of the medial femoral condyle. No subcortical cystic change or marrow edema to suggest full-thickness defect. LATERAL COMPARTMENT: Mild partial thickness thinning of the weight-bearing surface of the lateral fem oral condyle with I will subcortical cystic change or marrow edema to suggest full-thickness defect. PATELLA: No chondromalacia. No subchondral cysts. Medial and lateral retinacula intact. EXTENSOR MECHANISM: Intact. Quadriceps and patella tendons normal. SOFT TISSUES: Adjacent muscles and subcutaneous tissues normal. Normal flow void in popliteal artery and vein. OTHER: No other significant finding. 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 Nondisplaced longitudinal tear of the body of the medial meniscus. Minimal degenerati ve changes of the medial and lateral compartments. TECHNICAL DOCUMENTATION: JOB ID: [id number] 2010 [employer]- All Rights Reserved Reading location - IP/workstation name: [email or web address]
== END ==
LOC: RAD 12:05
PROVIDERS: ATTEND Physician Assistant
DX: S83.511A Sprain of anterior cruciate ligament of right knee, initial encounter (principal); S83.241A Other tear of medial meniscus, current injury, right knee, initial encounter; X58.XXXA Exposure to other specified factors, initial encounter